=== PATIENT | male | born 1980 | race Caucasian/White ===

== ENCOUNTER 2019-08-11 11:46 | Emergency (ER) | payer SELFPAY ==
[2019-08-11] MEDS ORDERED: LIDOCAINE 1% INJ-PF (10 MG/ML) 30 ML SDV INJ ONE (13:44)
--- NOTE | 2019-08-11 13:49 | ER Document Report ---
HPI - HPI Patient complains to provider of: left thumb laceration Time Seen by Provider: 08/11/19 13:29 Onset: Just prior to arrival Onset/Duration: Sudden Quality of pain: Achy Severity: Moderate Pain Level: 3 Context: This 38-year-old male presents emergency department with complaints of left thumb laceration. He reports he was making notches in a wood piece when his hand slipped and he cut himself with a knife. He reports was a new blade. He reports his tetanus is up-to-date. 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 No active bleeding. Patient is able to flex the thumb fully but unable to extend his thumb fully. Denies numbness or tingling. Patient is right-handed. Associated Symptoms: None Exacerbated by: Denies Relieved by: Denies Similar symptoms previously: No Recently seen / treated by doctor: No - CONSTITUTIONAL Constitutional: DENIES: Fever, Chills Past Medical History - General Information source: Patient - Social History Smoking Status: Never Smoker Frequency of alcohol use: Occasional Drug Abuse: None Family History: None Patient has suicidal ideation: No Patient has homicidal ideation: No Renal/ Medical History: Denies: Hx Peritoneal Dialysis Psychiatric Medical History: Reports: Hx Anxiety Surgical Hx: Negative Vertical Provider Document - CONSTITUTIONAL Agree With Documented VS: Yes Exam Limitations: No Limitations General Appearance: WD/WN, No Apparent Distress - HEENT HEENT: Atraumatic, Normocephalic - NECK Neck: Normal Inspection, Supple - RESPIRATORY Respiratory: No Respiratory Distress - CARDIOVASCULAR Cardiovascular: Regular Rate - MUSCULOSKELETAL/EXTREMETIES Musculoskeletal/Extremeties: MAEW, Tender - NEURO Level of Consciousness: Awake, Alert, Appropriate - DERM Integumentary: Warm, Dry, Laceration - laceration left dorsal thumb 1 cm patient is able to flex fully but unable to extend fully. Good cap refill Course - Re-evaluation Re-evalutation: 08/11/19 14:59 This 38-year-old male presents emergency department with laceration to his left dorsal thumb. Patient reports he was working on some wood when he nicked himself with his own knife. Reports his tetanus is up-to-date. Patient is able to flex thumb without problems and is having difficulty with full extension his left thumb. Patient is right-handed.. X-ray is negative for fracture. Discussed with Dr. guerra. He advised simple closure, fu with hand surgeon. I instructed patient to follow-up with hand surgeon. We discussed Dr. Shi. Patient was also instructed that if he did not follow-up he may not have full extension of the thumb. Hand X-Ray 08/11/19 13:44 IMPRESSION: NEGATIVE STUDY OF THE LEFT HAND. NO RADIOGRAPHIC EVIDENCE OF ACUTE INJURY. 08/11/19 15:[address] Shi's office to obtain an appointment for patient. Patient is a [place] patient and Medicaid. Patient is able to get the appointment if he pays upfront if he uses his Medicaid. If he goes to [place] they can do referral and he would not have to pay the money upfront. Patient has opted to contact [place] and get a referral. He was stressed that he must follow-up for possible tendon injury. He verbalized understanding to all information. Dictation of this chart was performed using voice recognition software; therefore, there may be some unintended grammatical errors. - Vital Signs Vital signs: Temp Pulse Resp BP Pulse Ox 98.0 F 85 16 139/73 H 97 08/11/19 11:54 08/11/19 11:54 08/11/19 11:54 08/11/19 11:54 08/11/19 11:54 - Diagnostic Test Radiology reviewed: Image reviewed, Reports reviewed Procedures - Laceration/Wound Repair Left Thumb Wound length (cm): 1 Wound's Depth, Shape: Linear Laceration pre-procedure: Sterile drapes applied, Shur-Clens applied Anesthetic type: 1% Lidocaine Volume Anesthetic (mLs): 2 Wound explored: Clean Suture Size/Type: 5:0, Ethilon Number of Sutures: 2 Layer Closure?: No Hands back picture: 1 - 1 cm laceration noted no active bleeding at this time wound cleaned explored no obvious tendon injury noted. Patient is not able to extend his thumb fully. Flexes without problems. Good cap refill. Discharge - Discharge Clinical Impression: laceration left thumb, suspect tendon injury Condition: Stable Disposition: HOME, SELF-CARE Instructions: Laceration Care ([facility]), Soap Cleansing ([facility]), Temporary Splint ([facility]) Additional Instructions: *You have been treated for a laceration with suture repair *Take Tylenol as indicated for pain *maintain the finger splint for protection of the area *Monitor the site for signs of infection such as increasing pain,redness, swelling, warmth [facility] to obtain [facility] to [facility]opedics, hand surgeon. Follow-up with a hand surgeon, Dr. Shi within the next 5 day s. Call tomorrow for an appointment. You have a possible tendon injury. Without repair of this area you may never be able to extend your thumb fully *Return to ED for signs of infection, worsening condition, changes, needs Referrals: SHIVA,NO [Primary Care Provider] - Follow up as needed CHI SHI DO [ACTIVE STAFF] - Follow up in 3-5 days
--- NOTE | 2019-08-11 14:43 | RADIOLOGY REPORT (SQ) ---
EXAM DESCRIPTION: HAND LEFT 3 VIEWS COMPLETED DATE/TIME: 08/11/2019 2:33 pm REASON FOR STUDY: laceration, pain COMPARISON: None. EXAM PARAMETERS: NUMBER OF VIEWS: Three views. TECHNIQUE: AP, lateral and oblique radiographic images acquired of the left hand. LIMITATIONS: None. FINDINGS: MINERALIZATION: Normal. BONES: No acute fracture or dislocation. No worrisome bone lesions. JOINTS: No effusions. SOFT TISSUES: No soft tissue swelling. No foreign body. OTHER: No other significant finding. IMPRESSION: NEGATIVE STUDY OF THE LEFT HAND. NO RADIOGRAPHIC EVIDENCE OF ACUTE INJURY. TECHNICAL DOCUMENTATION: JOB ID: [id number] [employer]- All Rights Reserved Reading location - IP/workstation name: [email or web address]
[2019-08-11 15:14] VITALS: BP 132/79
== END 2019-08-11 15:45 | disposition home or self-care (01) ==
LOC: ER 11:46
DX: S61.012A Laceration without foreign body of left thumb without damage to nail, initial encounter (principal); W26.0XXA Contact with knife, initial encounter; Y93.89 Activity, other specified
CPT/HCPCS: 99283; 73130; 12001; J3490